=== PATIENT | female | born 1995 | race Caucasian/White ===

== ENCOUNTER 2016-10-24 10:58 | Emergency (ER) | payer BC ==
--- NOTE | 2016-10-24 13:20 | ED CLINICAL REPORT ---
Clinical Report - Physicians/Mid Levels [facility] [address] [place] [address] 10/24/2016 11:10 Patient: RAJEEV HOLLINS Arrived- By private vehicle. Historian- patient. HISTORY OF PRESENT ILLNESS Chief Complaint: FEVER. This started yesterday and is still present and worsening. It was abrupt in onset and has been constant but is not gone now. The illness is described as moderate. The patient has had a cough, a sore throat, nasal congestion, fever and chills. She has had muscle aches and a nasal discharge. Additional history - The patient has had contact with a sick individual. Similar symptoms previously: None. Recent medical care: Not recently seen/assessed. REVIEW OF SYSTEMS No headache, diarrhea or skin rash. PAST HISTORY See nurses notes. SOCIAL HISTORY Former smoker. History of occasional drug use: marijuana. Not exposed to second-hand smoke at home. No alcohol use. Is a local resident. ADDITIONAL NOTES The nursing notes have been reviewed. PHYSICAL EXAM Vital Signs: 10/24/2016 11:28 BP: 102/60. RR: 16. Temp: 98.6 F. Blood pressure normal. Oxygen saturation normal. Appearance: Alert. No acute distress. Eyes: Pupils equal, round and reactive to light. Eyes normal inspection. ENT: Ears normal. Nose normal. Pharynx normal. Uvula midline. Neck: Normal inspection. Neck supple. No meningeal signs. CVS: Normal heart rate and rhythm. Heart sounds normal. Pulses normal. Respiratory: No respiratory distress. Breath sounds normal. No rales, rhonchi, wheezes or stridor. Abdomen: Soft and nontender. No organomegaly. No guarding, rebound tenderness, distention, mass present or organomegaly. The bowel sounds are not abnormal. Back: Normal inspection. Skin: Skin warm and dry. Normal skin color. No rash. Normal skin turgor. Extremities: Extremities exhibit normal ROM. No lower extremity edema. LABS, X-RAYS, AND EKG Laboratory Tests: UA-Culture if indicated: (JOSE: 10/24/2016 12:45) ( MsgRcvd 10/24/2016 13:04) Final results Test Result Flag Units (Reference) URINE COLOR YELLOW URINE APPEARANCE CLEAR URINE GLUCOSE NEGATIVE (NEGATIVE) URINE BILIRUBIN NEGATIVE (NEGATIVE) URINE KETONE 2+ (NEGATIVE) URINE SPECIFIC GRAVITY 1.010 (1.010-1.030) URINE PH 6.5 (5.0-8.0) URINE PROTEIN NEGATIVE (NEGATIVE) URINE UROBILINOGEN 0.2 EU/dL (0.2-1.0) URINE NITRITE NEGATIVE (NEGATIVE) URINE BLOOD NEGATIVE (NEGATIVE) URINE LEUK ESTERASE NEGATIVE (NEGATIVE) URINE RBC NONE SEEN rbc/hpf (0-1) URINE WBC 0-1 wbc/hpf (0-1) URINE EPITHELIAL CELLS 0-1 EPI/hpf (0-5) URINE BACTERIA NONE SEEN (NONE SEEN) URINE COMMENT CULT NOT INDICATED URINE CULTURES ARE SET-UP BASED ON THE FOLLOWING CRITERIA:POSITIVE NITRITEPOSITIVE LEUKOCYTE ESTERASEGREATER THAN 10 WHITE BLOOD CELLSMODERATE (2+) OR GREATER BACTERIA Urine: (JOSE: 10/24/2016 12:45) ( MsgRcvd 10/24/2016 12:52) Final results Test Result Flag Units (Reference) URINE NEGATIVE . PROGRESS AND PROCEDURES Course of Care: The patient is a pleasant 20-year-old female with a past medical history significant for smoking who presents for evaluation of constellation of signs and symptoms that are likely viral in etiology. The patient is having symptoms of vomiting. At this time differential diagnosis includes viral upper respiratory tract infection, urinary tract infection, possible . Do not feel patient has pneumonia based on her lung examination. Patient appears nontoxic and is in no acute distress. Do not feel patient has meningitis. Because the patient's clear lung examination, do not feel patient requires chest x-ray at this time. Patient appears nontoxic and with normal vital signs. Feel the chest x-ray would only be exposing patient to excessive radiation. Do not feel the benefits of this imaging modality outweighs the risks. Patient is agreeable to the treatment and plan. Workup does not show any acute amounts. Patient is not . Urinalysis does not show any signs of urinary tract infection. Patient reports significant improvement with her symptoms after treatment here in the emergency department. Repeat examination continues to be benign. Patient continues to be nontoxic. Vital signs are unremarkable. Do not the patient is admitted to the hospital require further emergency department evaluation. Discussed the patient workup, diagnosis, home care, follow-up, and return precautions. All questions answered. The patient expressed understanding of these instructions and was able to them. Disposition: Discharged. Condition: good. CLINICAL IMPRESSION Diarrhea (acute). Acute viral syndrome INSTRUCTIONS Warnings: GENERAL WARNINGS: Return or contact your physician immediately if your condition worsens or changes unexpectedly, if not improving as expected, or if other problems arise. Specifically return if pain, vomiting, bleeding, breathing difficulty or fever. Your Current Medications: CONTINUE TAKING THE FOLLOWING MEDICATIONS: None*. Prescription Medications: Zofran (orally disintegrating tablets) 4 mg: take 1 orally every 8 hours as needed for nausea and vomiting. Dispense ten (10). No refill. Substitution is permissible. Motrin 600 mg tablets: take 1 tablet orally every 6 hours as needed for pain, stiffness, swelling or fever. Dispense thirty (30). No refill. Substitution is permissible. OTC Medications: Acetaminophen 500 mg (available over the counter): take 1 orally every 6 hours as needed for fever or pain. Dispense thirty (30). No refill. Imodium (available over the counter): take according to label instructions. Follow-up: Return to the emergency department as needed. Follow up with your doctor in three days. Reason for referral: recheck today's concerns. Summary of care provided to patient via paper. Screening today revealed the patient's blood pressure to be in the normal range. The patient should follow up with a primary care provider for blood pressure management. Understanding of the discharge instructions verbalized by patient. (Electronically signed by Ivan Ferrell Dr. 10/28/2016 5:39)
--- NOTE | 2016-10-24 13:21 | ED ORDER SUMMARY ---
..... Patient: RAJEEV HOLLINS OrderSheet [facility] VisitID: [id number] [place] [address] 20y, F Registration Date/Time: 10/24/2016 ORDER SHEET Weight: 54.4 kg (stated) Allergies: No Known Drug Allergy GENERAL ORDERS: UA-Culture if indicated Urgent (11:49 10/24/2016 Giselle Munoz) (Ack 12:26 NHouse ER Tech1) (12:45 LNations ER Tech1) Urine Urgent (11:49 10/24/2016 Giselle Munoz) (Ack 12:26 NHouse ER Tech1) (12:45 LNations ER Tech1) MEDICATION ORDERS: Zofran ODT PO 4 mg (NOW) (11:49 10/24/2016 Giselle Munoz) (11:57 KWilliams R.N.) IV FLUIDS: ORDER SHEET NOTES: [Electronically signed by Rajani Mendoza R.N. (15:07 10/27/2016)] [Electronically signed by Ivan Ferrell Dr. (05:39 10/28/2016)] [Electronically locked/signed by Rajani Mendoza R.N. (15:07 10/27/2016)]
--- NOTE | 2016-10-24 13:21 | ED NURSING NOTES ---
Clinical Report - Nurses [facility] [address] [place] [address] 10/24/2016 11:10 Patient: RAJEEV HOLLINS TRIAGE Triage time 11:18. Acuity: LEVEL 3. Chief Complaint: COUGH, SORE THROAT and BODY ACHES. 11:28 10/24/16. Alert. No acute distress. --11:28 Greg Kinney R.N. 11:28 10/24/16. BP: 102/60. RR: 16. Temp: 98.6 F. Pain level now 10. --11:28 Greg Kinney R.N. 11:31 10/24/16. HR: 87. O2 saturation: 98% on room air. --11:31 Greg Kinney R.N. Weight: 54.4 kg stated. Height/Length: 69 inches Per Patient. BMI: 17.7. --11:23 Greg Kinney R.N. Medications None. --11:27 Greg Kinney R.N. Allergies No Known Drug Allergy. --11:27 Greg Kinney R.N. History Primary physician (PCP in [place], no PCP established here). ( pt states she had a cough last night, awoke this morning with a sore throat, chills, body aches. Emesis x2 this morning.). This started last night. Treatment EARLY CHILDHOOD ASSISTANT: None. PAST MEDICAL HX: Uses an intrauterine device. Denies current . SOCIAL HX: Former smoker (9 days ago). History of drug use: marijuana. No alcohol use. FALL RISK ASSESSMENT: Fall risk assessment completed. No fall risk identified. NUTRITIONAL RISK ASSESSMENT: The nutritional risk assessment revealed no deficiencies. FUNCTIONAL ASSESSMENT: Functional assessment: no impairments noted. LEARNING NEEDS ASSESSMENT: The learning needs assessment revealed no barriers. SKIN INTEGRITY ASSESSMENT: Skin integrity risk assessment completed. No skin integrity risk identified. --11:28 Greg Kinney R.N. PROBLEMS: no known problems. ADDITIONAL SURGERIES: Tonsillectomy. --11:27 Greg Kinney R.N. Interventions ID band on patient. To treatment room. --11:28 Greg Kinney R.N. PHYSICAL ASSESSMENT 11:28 10/24/16. Ambulatory to room. GENERAL / NEURO / PSYCH: Alert. Oriented X 4. Appears in no acute distress. HEENT: Mucous membranes are pink. RESPIRATORY: Respirations not labored. CVS: Capillary refill less than 2 seconds. Pulses within normal limits. GI / : Abdomen soft and nontender. SKIN: Skin intact. Skin is warm and dry. Normal skin turgor. --11:28 Greg Kinney R.N. NURSING PROGRESS NOTES 11:28 10/24/16. The plan of care for this patient has been created. Head of bed elevated. Call light placed in reach. Bed placed in lowest position. Brakes of bed on. Patient ready for evaluation- chart flagged. --11:28 Greg Kinney R.N. 11:52 10/24/2016 Zofran ODT (Ondansetron) PO Oral Disintegrating Tablets 4 mg given. Allergies verified and confirmed 5 rights. --11:57 Greg Kinney R.N. 11:58 10/24/16. ( pt states she is unable to pee at this time.). --11:58 Greg Kinney R.N. Patient ID band checked for patient name and birthdate: patient confirmed. Instructions provided to collect clean catch urine and patient verbalized understanding. Clean catch urine collected with return of yellow-colored urine; sample sent to lab for urinalysis, culture and HCG. Specimen labeled in the presence of the patient. --12:45 Brea Ivan, ER Tech1 Warming measures: blanket applied. --12:46 Marzena, Brea, ER Tech1. DISPOSITION / DISCHARGE 13:30 10/24/16. Departure time: 1330. Condition at departure: improved and stable. No learning barriers present. Discharge instructions provided and reviewed with the patient. Reviewed medication(s) side effects, precautions, dosing and course information. Patient verbalized understanding. Written instructions provided in Guatemalan. The patient was discharged by the physician. She was discharged home and accompanied by adjudication specialist. She left the Emergency Department ambulatory and via private vehicle. Welding Operator driving. --13:31 Greg Kinney R.N. 13:30 10/24/16. BP: 123/63. HR: 90. RR: 17. O2 saturation: 98% on room air. Temp: 99.2 F (oral). Pain level now 4/10. --13:31 Greg Kinney R.N. Locked/Released at 10/27/2016 15:07 by Rajani Mendoza R.N.
--- NOTE | 2016-10-24 13:21 | ED NURSING NOTES ---
Clinical Report - Nurses [facility] [address] [place] [address] 10/24/2016 11:10 Patient: RAJEEV HOLLINS TRIAGE Triage time 11:18. Acuity: LEVEL 3. Chief Complaint: COUGH, SORE THROAT and BODY ACHES. 11:28 10/24/16. Alert. No acute distress. --11:28 Greg Kinney R.N. 11:28 10/24/16. BP: 102/60. RR: 16. Temp: 98.6 F. Pain level now 10. --11:28 Greg Kinney R.N. 11:31 10/24/16. HR: 87. O2 saturation: 98% on room air. --11:31 Greg Kinney R.N. Weight: 54.4 kg stated. Height/Length: 69 inches Per Patient. BMI: 17.7. --11:23 Greg Kinney R.N. Medications None. --11:27 Greg Kinney R.N. Allergies No Known Drug Allergy. --11:27 Greg Kinney R.N. History Primary physician (PCP in [place], no PCP established here). ( pt states she had a cough last night, awoke this morning with a sore throat, chills, body aches. Emesis x2 this morning.). This started last night. Treatment SAFETY DIRECTOR: None. PAST MEDICAL HX: Uses an intrauterine device. Denies current . SOCIAL HX: Former smoker (9 days ago). History of drug use: marijuana. No alcohol use. FALL RISK ASSESSMENT: Fall risk assessment completed. No fall risk identified. NUTRITIONAL RISK ASSESSMENT: The nutritional risk assessment revealed no deficiencies. FUNCTIONAL ASSESSMENT: Functional assessment: no impairments noted. LEARNING NEEDS ASSESSMENT: The learning needs assessment revealed no barriers. SKIN INTEGRITY ASSESSMENT: Skin integrity risk assessment completed. No skin integrity risk identified. --11:28 Greg Kinney R.N. PROBLEMS: no known problems. ADDITIONAL SURGERIES: Tonsillectomy. --11:27 Greg Kinney R.N. Interventions ID band on patient. To treatment room. --11:28 Greg Kinney R.N. PHYSICAL ASSESSMENT 11:28 10/24/16. Ambulatory to room. GENERAL / NEURO / PSYCH: Alert. Oriented X 4. Appears in no acute distress. HEENT: Mucous membranes are pink. RESPIRATORY: Respirations not labored. CVS: Capillary refill less than 2 seconds. Pulses within normal limits. GI / : Abdomen soft and nontender. SKIN: Skin intact. Skin is warm and dry. Normal skin turgor. --11:28 Greg Kinney R.N. NURSING PROGRESS NOTES 11:28 10/24/16. The plan of care for this patient has been created. Head of bed elevated. Call light placed in reach. Bed placed in lowest position. Brakes of bed on. Patient ready for evaluation- chart flagged. --11:28 Greg Kinney R.N. 11:52 10/24/2016 Zofran ODT (Ondansetron) PO Oral Disintegrating Tablets 4 mg given. Allergies verified and confirmed 5 rights. --11:57 Greg Kinney R.N. 11:58 10/24/16. ( pt states she is unable to pee at this time.). --11:58 Greg Kinney R.N. Patient ID band checked for patient name and birthdate: patient confirmed. Instructions provided to collect clean catch urine and patient verbalized understanding. Clean catch urine collected with return of yellow-colored urine; sample sent to lab for urinalysis, culture and HCG. Specimen labeled in the presence of the patient. --12:45 Brea Ivan, ER Tech1 Warming measures: blanket applied. --12:46 Marzena, Brea, ER Tech1. DISPOSITION / DISCHARGE 13:30 10/24/16. Departure time: 1330. Condition at departure: improved and stable. No learning barriers present. Discharge instructions provided and reviewed with the patient. Reviewed medication(s) side effects, precautions, dosing and course information. Patient verbalized understanding. Written instructions provided in Libyan. The patient was discharged by the physician. She was discharged home and accompanied by paramedic. She left the Emergency Department ambulatory and via private vehicle. Relief Operator driving. --13:31 Greg Kinney R.N. 13:30 10/24/16. BP: 123/63. HR: 90. RR: 17. O2 saturation: 98% on room air. Temp: 99.2 F (oral). Pain level now 4/10. --13:31 Greg Kinney R.N. Locked/Released at 10/27/2016 15:07 by Rajani Mendoza R.N.
--- NOTE | 2016-10-24 13:21 | ED ORDER SUMMARY ---
..... Patient: RAJEEV HOLLINS OrderSheet [facility] VisitID: [id number] [place] [address] 20y, F Registration Date/Time: 10/24/2016 ORDER SHEET Weight: 54.4 kg (stated) Allergies: No Known Drug Allergy GENERAL ORDERS: UA-Culture if indicated Urgent (11:49 10/24/2016 Giselle Munoz) (Ack 12:26 NHouse ER Tech1) (12:45 LNations ER Tech1) Urine Urgent (11:49 10/24/2016 Giselle Munoz) (Ack 12:26 NHouse ER Tech1) (12:45 LNations ER Tech1) MEDICATION ORDERS: Zofran ODT PO 4 mg (NOW) (11:49 10/24/2016 Giselle Munoz) (11:57 KWilliams R.N.) IV FLUIDS: ORDER SHEET NOTES: [Electronically signed by Rajani Mendoza R.N. (15:07 10/27/2016)] [Electronically signed by Ivan Ferrell Dr. (05:39 10/28/2016)] [Electronically locked/signed by Rajani Mendoza R.N. (15:07 10/27/2016)]
--- NOTE | 2016-10-28 05:39 | ED MAR SUMMARY ---
..... Medication Administration Record [facility] [address] [place] [address] Patient: RAJEEV HOLLINS Visit ID: [id number] 20y, F Weight: 54.4 kg Height/Length: 69 in BMI: 17.7 ALLERGIES: No Known Drug Allergy Given 11:52 10/24/2016 Greg Kinney RQuinton Medication Administered: ZOFRAN ODT [PO] (ONDANSETRON), Dose: 4 mg Oral Disintegrating Tablets PO. Medication Ordered: Zofran ODT PO 4 mg (NOW).
--- NOTE | 2016-10-28 05:39 | ED MED RECONCILIATION SUMMARY ---
Patient: RAJEEV HOLLINS Medication Reconciliation Report [facility] VisitID: [id number] [place] [address] 20y, F Registration Date/Time: 10/24/2016 Weight: 54.4 kg Height/Length: 69 in. BMI: 17.7 ALLERGIES: No Known Drug Allergy The patient's Home Medications are listed below: NONE. The source(s) of the original Home Medication information: Not obtained. The following Medications were given to the patient in the Emergency Department: Zofran ODT [PO] PO 4 mg, administered: 10/24/2016 11:52:00 AM The following Medications were prescribed to the patient: Acetaminophen 500 mg (available over the counter): take 1 orally every 6 hours as needed for fever or pain. Dispense thirty (30). No refill. -- Ivan Ferrell Dr. Zofran (orally disintegrating tablets) 4 mg: take 1 orally every 8 hours as needed for nausea and vomiting. Dispense ten (10). No refill. Substitution is permissible. -- Ivan Ferrell Dr. Imodium (available over the counter): take according to label instructions. -- Ivan Ferrell Dr. Motrin 600 mg tablets: take 1 tablet orally every 6 hours as needed for pain, stiffness, swelling or fever. Dispense thirty (30). No refill. Substitution is permissible. -- Ivan Ferrell Dr.
--- NOTE | 2016-10-28 05:39 | ED MED RECONCILIATION SUMMARY ---
Patient: RAJEEV HOLLINS Medication Reconciliation Report [facility] VisitID: [id number] [place] [address] 20y, F Registration Date/Time: 10/24/2016 Weight: 54.4 kg Height/Length: 69 in. BMI: 17.7 ALLERGIES: No Known Drug Allergy The patient's Home Medications are listed below: NONE. The source(s) of the original Home Medication information: Not obtained. The following Medications were given to the patient in the Emergency Department: Zofran ODT [PO] PO 4 mg, administered: 10/24/2016 11:52:00 AM The following Medications were prescribed to the patient: Acetaminophen 500 mg (available over the counter): take 1 orally every 6 hours as needed for fever or pain. Dispense thirty (30). No refill. -- Ivan Ferrell Dr. Zofran (orally disintegrating tablets) 4 mg: take 1 orally every 8 hours as needed for nausea and vomiting. Dispense ten (10). No refill. Substitution is permissible. -- Ivan Ferrell Dr. Imodium (available over the counter): take according to label instructions. -- Ivan Ferrell Dr. Motrin 600 mg tablets: take 1 tablet orally every 6 hours as needed for pain, stiffness, swelling or fever. Dispense thirty (30). No refill. Substitution is permissible. -- Ivan Ferrell Dr.
--- NOTE | 2016-10-28 05:39 | ED DISCHARGE INSTRUCTIONS ---
Patient: RAJEEV HOLLINS General Instructions Merged With [facility] VisitID: [id number] [place] [address] 20y, F Registration Date/Time: 10/24/2016 Diarrhea (acute). Acute viral syndrome INSTRUCTIONS Warnings: GENERAL WARNINGS: Return or contact your physician immediately if your condition worsens or changes unexpectedly, if not improving as expected, or if other problems arise. Specifically return if pain, vomiting, bleeding, breathing difficulty or fever. Your Current Medications: CONTINUE TAKING THE FOLLOWING MEDICATIONS: None*. Prescription Medications: Zofran (orally disintegrating tablets) 4 mg: take 1 orally every 8 hours as needed for nausea and vomiting. Dispense ten (10). No refill. Substitution is permissible. Motrin 600 mg tablets: take 1 tablet orally every 6 hours as needed for pain, stiffness, swelling or fever. Dispense thirty (30). No refill. Substitution is permissible. OTC Medications: Acetaminophen 500 mg (available over the counter): take 1 orally every 6 hours as needed for fever or pain. Dispense thirty (30). No refill. Imodium (available over the counter): take according to label instructions. Follow-up: Return to the emergency department as needed. Follow up with your doctor in three days. Reason for referral: recheck today's concerns. Summary of care provided to patient via paper. Screening today revealed the patient's blood pressure to be in the normal range. The patient should follow up with a primary care provider for blood pressure management. Understanding of the discharge instructions verbalized by patient. ADDITIONAL INFORMATION Viral Syndrome (Adult) A viral illness may cause a number of symptoms. The symptoms depend on the part of the body that the virus affects. If it settles in the nose, throat, and lungs, it may cause cough, sore throat, congestion, and sometimes headache. If it settles in the stomach and intestinal tract, it may cause vomiting and diarrhea. Sometimes it causes vague symptoms like "aching all over," feeling tired, loss of appetite, or fever. A viral illness usually lasts1 to 2 weeks, but sometimes it lasts longer. In some cases, a more serious infection can look like a viral syndrome in the first few days of the illness. You may need anotherexam and additional teststo know the difference.Watch for the warning signs listed below. Home care Follow these guidelines for taking care of yourself at home: If symptoms are severe, rest at home for the first 2 to 3 days. Stay away from cigarette smoke - both your smoke and the smoke from others. You may useacetaminophen or ibuprofen for fever, muscle aching, and headache, unless another medicine was prescribed for this.If you have chronic liver or kidney disease or ever had a stomach ulcer or GI bleeding, talk with your doctor before using these medicinesNo one who is younger than 18 and ill with a fever should take aspirin. It may cause severe liver damage. Your appetite may be poor, so a light diet is fine. Avoid dehydration by drinking 8 to 12 8-ounce glasses of fluids each day. This may include water; orange juice; lemonade; apple, grape, and cranberry juice; clear fruit drinks; electrolyte replacement and sports drinks; and decaffeinated teas and coffee. If you have been diagnosed with a kidney disease, ask your doctor how much and what types of fluids you should drink to prevent dehydration. If you have kidney disease, drinking too much fluid can cause it build up in the your body and be dangerous to your health. Mosl-aho-azphjac remedies won't shorten the length of the illness but may be helpful forcough, sore throat; and nasal and sinus congestion. Don't use decongestants if you have high blood pressure. Follow-up care Follow up with your health care provider if you do not improve over the next week. When to seek medical care Get prompt medical attention if any of these occur: Cough with lots of colored sputum (mucus) or blood in your sputum Chest pain, shortness of breath, wheezing, or difficulty breathing Severe headache; face, neck, or ear pain Severe, constant pain in the lower right side of your belly (abdominal) Continued vomiting (cant keep liquids down) Frequent diarrhea (more than 5 times a day); blood (red or black color) or mucus in diarrhea Feeling weak, dizzy, or like you are going to faint Extreme thirst Fever of 100.4 F (38 C) oral or higher, not better with fever medication Convulsion Diarrhea, Uncertain Cause (Adult, Report Pending) Diarrhea has several possible causes. Commonstomach fluis caused by a virus. Food poisoning, bacteria or parasites are other causes for diarrhea. Only diarrhea caused by bacteria or parasites requires treatment with an antibiotic. Diarrhea from a virus or food poisoning improves with simple home treatment. A stool sample is needed to make the diagnosis of an infection with bacteria or parasites. Up to three stool specimens may be required to diagnose This may take up to two days to get the result. It may be necessary to wait until the stool test is complete to make the diagnosis and select the best antibiotic to prescribe. Home Care: If symptoms are severe, rest at home for the next 24 hours or until you are feeling better. You may use acetaminophen (Tylenol) or ibuprofen (Motrin, Advil) to control fever, unless another medicine was prescribed. [NOTE: If you have chronic liver or kidney disease or ever had a stomach ulcer or GI bleeding, talk with your doctor before using these medicines.] (Aspirin should never be used in anyone under 18 years of age who is ill with a fever. It may cause severe liver damage.) Avoid tobacco, caffeine and alcohol, which may worsen your symptoms. If anti-diarrhea medicine was prescribed, take this only as directed. Sometimes anti-diarrhea medicine can make your condition worse if the cause is an infectious diarrhea. Therefore, anti-diarrhea medicine should not be taken for this condition unless advised by your doctor. During The First 12-24 Hours follow the diet below: BEVERAGES: Sport drinks like Gatorade, soft drinks without caffeine; jordan rmaírez, mineral water (plain or flavored), decaffeinated tea and coffee. SOUPS: Clear broth, consomm and bouillon DESSERTS: Plain gelatin (Jell-O), popsicles and fruit juice bars. During The Next 24 Hours you may add the following to the above: Hot cereal, plain toast, bread, rolls, crackers Plain noodles, rice, mashed potatoes, chicken noodle or rice soup Unsweetened canned fruit (avoid pineapple), bananas Limit fat intake to less than 15 grams per day by avoiding margarine, butter, oils, mayonnaise, sauces, gravies, fried foods, peanut butter, meat, poultry and fish. Limit fiber; avoid raw or cooked vegetables, fresh fruits (except bananas) and bran cereals. Limit caffeine and chocolate. No spices or seasonings except salt. During The Next 24 Hours Gradually resume a normal diet, as you feel better and your symptoms lessen. Follow Up with your doctor or as advised if you are not improving over the next two days. If you were asked to bring a specimen from home, bring the sample on the day of collection. You may call in 2 days (or as directed) for the results. Get Prompt Medical Attention if any of the following occur: Increasing abdominal pain or constant lower right abdominal pain Continued vomiting (unable to keep liquids down) Frequent diarrhea (more than 5 times a day) Blood in vomit or stool (black or red color) Reduced oral intake Dark urine, reduced urine output Weakness, dizziness, fainting Drowsiness, confusion, stiff neck or seizure Fever of 100.4F (38C) oral or higher, not better with fever medication New rash Ondansetron Oral disintegrating tablet What is this medicine? ONDANSETRON (on DOROTHEA se tabatha) is used to treat nausea and vomiting caused by chemotherapy. It is also used to prevent or treat nausea and vomiting after surgery. How should I use this medicine? These tablets are made to dissolve in the mouth. Do not try to push the tablet through the foil backing. With dry hands, peel away the foil backing and gently remove the tablet. Place the tablet in the mouth and allow it to dissolve, then swallow. While you may take these tablets with water, it is not necessary to do so. Talk to your underground production foreperson regarding the use of this medicine in children. Special care may be needed. What side effects may I notice from receiving this medicine? Side effects that you should report to your doctor or health healthcare management consultant as soon as possible: allergic reactions like skin rash, itching or hives, swelling of the face, lips, or tongue breathing problems dizziness fast or irregular heartbeat feeling faint or lightheaded, falls fever and chills swelling of the hands and feet tightness in the chest Side effects that usually do not require medical attention (report to your doctor or health healthcare management consultant if they continue or are bothersome): constipation or diarrhea headache What may interact with this medicine? Do not take this medicine with any of the following medications: -apomorphine -cisapride -dofetilide -dronedarone -pimozide -thioridazine -ziprasidone This medicine may also interact with the following medications: -carbamazepine -phenytoin -rifampicin -tramadol -other medicines that prolong the QT interval (cause an abnormal heart rhythm) What if I miss a dose? If you miss a dose, take it as soon as you can. If it is almost time for your next dose, take only that dose. Do not take double or extra doses. Where should I keep my medicine? Keep out of the reach of children. Store between 2 and 30 degrees C (36 and 86 degrees F). Throw away any unused medicine after the expiration date. What should I tell my health care provider before I take this medicine? They need to know if you have any of these conditions: heart disease history of irregular heartbeat liver disease low levels of magnesium or potassium in the blood an unusual or allergic reaction to ondansetron, granisetron, other medicines, foods, dyes, or preservatives or trying to get breast-feeding What should I watch for while using this medicine? Check with your doctor or health healthcare management consultant as soon as you can if you have any sign of an allergic reaction. Ibuprofen Oral tablet What is this medicine? IBUPROFEN (eye BYOO proe fen) is a non-steroidal anti-inflammatory drug (NSAID). It is used for dental pain, fever, headaches or migraines, osteoarthritis, rheumatoid arthritis, or painful monthly periods. It can also relieve minor aches and pains caused by a cold, flu, or sore throat. How should I use this medicine? Take this medicine by mouth with a glass of water. Follow the directions on the prescription label. Take this medicine with food if your stomach gets upset. Try to not lie down for at least 10 minutes after you take the medicine. Take your medicine at regular intervals. Do not take your medicine more often than directed. A special MedGuide will be given to you by the pharmacist with each prescription and refill. Be sure to read this information carefully each time. Talk to your underground production foreperson regarding the use of this medicine in children. Special care may be needed. What side effects may I notice from receiving this medicine? Side effects that you should report to your doctor or health healthcare management consultant as soon as possible: allergic reactions like skin rash, itching or hives, swelling of the face, lips, or tongue black or bloody stools, blood in the urine or in vomit breathing problems changes in vision chest pain general ill feeling or flu-like symptoms nausea or vomiting redness, blistering, peeling or loosening of the skin, including inside the mouth slurred speech or weakness on one side of the body stomach pain unexplained weight gain or swelling unusually weak or tired yellowing of eyes or skin Side effects that usually do not require medical attention (report to your doctor or health healthcare management consultant if they continue or are bothersome): constipation or diarrhea dizziness gas or heartburn stomach upset What may interact with this medicine? Do not take this medicine with any of the following medications: cidofovir ketorolac methotrexate pemetrexed This medicine may also interact with the following medications: alcohol aspirin diuretics lithium other drugs for inflammation like prednisone warfarin What if I miss a dose? If you miss a dose, take it as soon as you can. If it is almost time for your next dose, take only that dose. Do not take double or extra doses. Where should I keep my medicine? Keep out of the reach of children. Store at room temperature between 15 and 30 degrees C (59 and 86 degrees F). Keep container tightly closed. Throw away any unused medicine after the expiration date. What should I tell my health care provider before I take this medicine? They need to know if you have any of these conditions: asthma cigarette smoker drink more than 3 alcohol containing drinks a day heart disease or circulation problems such as heart failure or leg edema (fluid retention) high blood pressure kidney disease liver disease stomach bleeding or ulcers an unusual or allergic reaction to ibuprofen, aspirin, other NSAIDS, other medicines, foods, dyes, or preservatives or trying to get breast-feeding What should I watch for while using this medicine? Tell your doctor or healthcare professional if your symptoms do not start to get better or if they get worse. This medicine does not prevent heart attack or stroke. In fact, this medicine may increase the chance of a heart attack or stroke. The chance may increase with longer use of this medicine and in people who have heart disease. If you take aspirin to prevent heart attack or stroke, talk with your doctor or health healthcare management consultant. Do not take other medicines that contain aspirin, ibuprofen, or naproxen with this medicine. Side effects such as stomach upset, nausea, or ulcers may be more likely to occur. Many medicines available without a prescription should not be taken with this medicine. This medicine can cause ulcers and bleeding in the stomach and intestines at any time during treatment. Ulcers and bleeding can happen without warning symptoms and can cause . To reduce your risk, do not smoke cigarettes or drink alcohol while you are taking this medicine. You may get drowsy or dizzy. Do not drive, use machinery, or do anything that needs mental alertness until you know how this medicine affects you. Do not stand or sit up quickly, especially if you are an older patient. This reduces the risk of dizzy or fainting spells. This medicine can cause you to bleed more easily. Try to avoid damage to your teeth and gums when you brush or floss your teeth. Acetaminophen Oral tablet What is this medicine? ACETAMINOPHEN (a set a ELAINA jeff fen) is a pain reliever. It is used to treat mild pain and fever. How should I use this medicine? Take this medicine by mouth with a glass of water. Follow the directions on the package or prescription label. Take your medicine at regular intervals. Do not take your medicine more often than directed. Talk to your underground production foreperson regarding the use of this medicine in children. While this drug may be prescribed for children as young as 6 years of age for selected conditions, precautions do apply. What side effects may I notice from receiving this medicine? Side effects that you should report to your doctor or health healthcare management consultant as soon as possible: allergic reactions like skin rash, itching or hives, swelling of the face, lips, or tongue breathing problems fever or sore throat redness, blistering, peeling or loosening of the skin, including inside the mouth trouble passing urine or change in the amount of urine unusual bleeding or bruising unusually weak or tired yellowing of the eyes or skin Side effects that usually do not require medical attention (report to your doctor or health healthcare management consultant if they continue or are bothersome): headache nausea, stomach upset What may interact with this medicine? alcohol imatinib isoniazid other medicines with acetaminophen What if I miss a dose? If you miss a dose, take it as soon as you can. If it is almost time for your next dose, take only that dose. Do not take double or extra doses. Where should I keep my medicine? Keep out of reach of children. Store at room temperature between 20 and 25 degrees C (68 and 77 degrees F). Protect from moisture and heat. Throw away any unused medicine after the expiration date. What should I tell my health care provider before I take this medicine? They need to know if you have any of these conditions: if you frequently drink alcohol containing drinks liver disease an unusual or allergic reaction to acetaminophen, other medicines, foods, dyes or preservatives or trying to get breast-feeding What should I watch for while using this medicine? Tell your doctor or health healthcare management consultant if the pain lasts more than 10 days (5 days for children), if it gets worse, or if there is a new or different kind of pain. Also, check with your doctor if a fever lasts for more than 3 days. Do not take other medicines that contain acetaminophen with this medicine. Always read labels carefully. If you have questions, ask your doctor or pharmacist. If you take too much acetaminophen get medical help right away. Too much acetaminophen can be very dangerous and cause liver damage. Even if you do not have symptoms, it is important to get help right away. You have been given the following additional information: Viral Syndrome (Adult) Diarrhea, Unk Cause (Adult) Report Pendg Ondansetron Oral disintegrating tablet Ibuprofen Oral tablet Acetaminophen Oral tablet (Electronically signed by Ivan Ferrell Dr. 10/28/2016 5:39)
--- NOTE | 2016-10-28 05:39 | ED MAR SUMMARY ---
..... Medication Administration Record [facility] [address] [place] [address] Patient: RAJEEV HOLLINS Visit ID: [id number] 20y, F Weight: 54.4 kg Height/Length: 69 in BMI: 17.7 ALLERGIES: No Known Drug Allergy Given 11:52 10/24/2016 Greg Kinney RQuinton Medication Administered: ZOFRAN ODT [PO] (ONDANSETRON), Dose: 4 mg Oral Disintegrating Tablets PO. Medication Ordered: Zofran ODT PO 4 mg (NOW).
== END 2016-10-24 13:30 | disposition home or self-care (01) ==
LOC: ED SRH 10:58
DX: R19.7 Diarrhea, unspecified (principal); B34.9 Viral infection, unspecified; Z87.891 Personal history of nicotine dependence
CPT/HCPCS: 90004; 93070